=== PATIENT | female | born 1980 | race Caucasian/White ===

== ENCOUNTER 2017-02-24 14:15 | Inpatient (IN) | payer BC, OTHER ==
[~2017-02-24] VITALS: Ht 154.9 cm; Wt 61.2 kg
[2017-02-24] MEDS ORDERED: LORAZEPAM 2 MG/1 ML VIAL IM PRN (14:30)
[2017-02-24] MEDS ORDERED: MAG HYDROX/AL HYDROX/SIMETH 30 ML LIQUID UDC PO PRN (14:30)
[2017-02-24] MEDS ORDERED: LORAZEPAM 1 MG TABLET PO PRN ×2 (14:30)
[2017-02-24] MEDS ORDERED: ONDANSETRON ODT 4 MG TAB.RAPDIS SL PRN (14:30)
[2017-02-24] MEDS ORDERED: LOPERAMIDE HCL 2 MG CAPSULE PO PRN ×2 (14:30)
[2017-02-24] MEDS ORDERED: ONDANSETRON 4 MG/2 ML VIAL IM PRN (14:30)
[2017-02-24] MEDS ORDERED: MIRALAX 17 GM POWD.PACK PO PRN (14:30)
[2017-02-24] MEDS ORDERED: HYDROXYZINE PAMOATE 25 MG CAPSULE PO PRN (14:30)
[2017-02-24] MEDS ORDERED: CLONIDINE HCL 0.1 MG TABLET PO PRN (14:30)
[2017-02-24] MEDS ORDERED: ACETAMINOPHEN 325 MG TABLET PO PRN (14:30)
[2017-02-24] MEDS ORDERED: diphenhydrAMINE 50 MG CAPSULE PO PRN (14:30)
[2017-02-24 15:22] VITALS: BP 139/92
[2017-02-24] MEDS ORDERED: SERT25TA PO (15:26)
[2017-02-24] MEDS ORDERED: MAGN400T26 PO (15:26)
[2017-02-24] MEDS ORDERED: MELA3TAB PO (15:26)
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
[2017-02-24 15:27] LABS: *AMPHETAMINE, URINE NEGATIVE (NEGATIVE); *BARBITURATE, URINE NEGATIVE (NEGATIVE); *CANNABINOID, URINE NEGATIVE (NEGATIVE); *COCCAINE, URINE NEGATIVE (NEGATIVE); *OPIATE, URINE NEGATIVE (NEGATIVE); *PHENCYCLIDINE SCREEN,URINE NEGATIVE (NEGATIVE)
[2017-02-24 15:30] LABS: *URINE HCG, QUAL NEGATIVE (NEGATIVE)
[2017-02-24 15:35] LABS: ALANINE AMINOTRANSFERASE 19 U/L (14-59); ALKALINE PHOSPHATASE 60 U/L (50-136); AMYLASE 46 U/L (25-115); ASPARTATE AMINOTRANSFERASE 16 U/L (15-37); BASOPHILS % (AUTO) 0.4 % (0.0-2.0); BILIRUBIN,TOTAL 1.2 mg/dL (0.2-1.0); CARBON DIOXIDE 27 mmol/L (21-32); CHLORIDE 100 mmol/L (98-107); CREATININE 0.7 mg/dL (0.6-1.3); EOSINOPHILS % (AUTO) 0.2 % (0.0-7.0); GLUCOSE 131 mg/dL (74-106); HEMATOCRIT 41.7 % (37-47); HEMOGLOBIN 13.8 G/DL (12.0-16.0); LYMPHOCYTES # (AUTO) 1.4 K/UL (0.8-4.8); LYMPHOCYTES % (AUTO) 18.8 % (20.5-51.5); MAGNESIUM 1.6 mg/dL (1.8-2.4); MEAN CORPUSCULAR HEMOGLOBIN 32.4 UUG (27.0-31.0); MEAN CORPUSCULAR HGB CONC 33 g/dL (32.0-37.0); MEAN CORPUSCULAR VOLUME 98.2 FL (81.0-99.0); MONOCYTES # (AUTO) 0.5 K/UL (0.1-1.30); MONOCYTES % (AUTO) 6.3 % (0.0-11.0); NEUTROPHILS # (AUTO) 5.4 K/UL (1.8-8.9); NEUTROPHILS % (AUTO) 74.3 % (38.5-71.5); PLATELET COUNT (AUTO) 303 K/UL (150-450); POTASSIUM 3.4 mmol/L (3.5-5.1); RED BLOOD CELL COUNT(AUTO) 4.24 MIL/UL (4.2-5.4); TOTAL PROTEIN, SERUM 7.7 g/dL (6.4-8.2); UREA NITROGEN, BLOOD 10 mg/dL (7-18); WHITE BLOOD COUNT (AUTO) 7.3 K/UL (4.0-11.2)
[2017-02-24 15:55] LABS: ETHANOL < 3 MG/DL (0-0)
[2017-02-24] MEDS ORDERED: THIAMINE HCL 200 MG/2 ML VIAL IM ONE (16:00)
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
--- NOTE | 2017-02-24 18:25 | NUR ---
PRN ATIVAN WAS EFFECTIVE. CIWA 12. TYLENOL PRN EFFECTIVE. SHE STATES H/A IS GONE. WILL PASS SHIFT REPORT TO ONCOMING NIGHT NURSE.
[2017-02-24] MEDS ORDERED: POTASSIUM CHLORIDE 10 MEQ CAPSULE.SA PO ONE (18:30)
[2017-02-24] MEDS ORDERED: MAGNESIUM OXIDE 400 MG TABLET PO ONE (18:30)
[2017-02-24 20:00] VITALS: BP 121/74
--- NOTE | 2017-02-24 20:00 | NUR ---
Start of Shift Pt is a 37 year old female admitted for ETOH dependence, placed on Ativan taper. Pt reported consuming Vodka 750ml/daily and Wine 2 bottles when not drinking Vodka. PMH: Anxiety, depression and Insomnia. Pt reports seasonal allergies, regular diet, fall/seizure precautions and full code. Upon assessment, pt reports feeling anxious with tremors felt upon touch, skin is noted with moderate sweat, clammy upon touch, reports mild chills, respirations even/unlabored, denies SOB/chest pain, denies N/V/D, medications due, Safety measures in place, call light within reach, side rails up x2, bed locked and in low position. Will continue to monitor.
[2017-02-24] MEDS: TRAZODONE 50 MG TABLET PO PRN (20:37)
--- NOTE | 2017-02-24 20:37 | NUR ---
PRN Administration Pt requests aid to help her sleep. Pt refuses scheduled Melatonin. Pt states, "it does not really help". Trazodone 50mg PRN administered. Safety measures in place, Will continue to monitor.
[2017-02-24] MEDS ORDERED: LORAZEPAM 1 MG TABLET PO SCH (21:00)
[2017-02-24] MEDS ORDERED: PATIENT MAY USE OWN MED- MD OK PO SCH (21:00)
[2017-02-24] MEDS ORDERED: SERTRALINE HCL 50 MG TABLET PO ONE (21:00)
[2017-02-24] MEDS ORDERED: LORAZEPAM 1 MG TABLET ONE (21:26)
--- NOTE | 2017-02-24 21:37 | NUR ---
PRN Reassessment Upon reassessment, pt is resting with eyes closed, respirations even/unlabored. Safety measures in place. Will continue to monitor.
[2017-02-25] VITALS: BP 126/85
--- NOTE | 2017-02-25 | NUR ---
Vital Signs/CIWA deferred BP 126/85, pulse 71, resp 16, SpO2 98% room air, temp 98.2, no pain CIWA deferred due to pt sleeping, to assess while pt is awake as ordered. Safety measures in place, will continue to monitor.
[2017-02-25 04:00] VITALS: BP 112/76
--- NOTE | 2017-02-25 04:00 | NUR ---
Vital Signs/CIWA deferred BP 112/76, pulse 70, resp 16, SpO2 98% room air, temp 98.1, no pain CIWA deferred due to pt sleeping, to assess while pt is awake as ordered. Safety measures in place, will continue to monitor.
[2017-02-25 06:06] LABS: HEPATITIS B SURFACE AG Negative (Negative)
--- NOTE | 2017-02-25 07:00 | NUR ---
End of Shift Pt is a 37 year old female admitted for ETOH dependence, placed on Ativan taper. Pt reported consuming Vodka 750ml/daily and Wine 2 bottles when not drinking Vodka. PMH: Anxiety, depression and Insomnia. Pt reports seasonal allergies, regular diet, fall/seizure precautions and full code. During shift, pt reported feeling anxious with tremors felt upon touch, skin is noted with moderate sweat, clammy upon touch, reports mild chills - scheduled taper medications administered, CIWA 7. Trazodone 50mg PRN administered for sleep, effective. Pt slept for 8 hours, intake of 1341 ml PO, voids x2 and stool x0. Safety measures in place, call light within reach, side rails up x2, bed locked and in low positin. Endorsed to day shift nurse.
[2017-02-25 08:08] VITALS: BP 128/75
--- NOTE | 2017-02-25 08:10 | NUR ---
START OF SHIFT: RECEIVED PT A/O X 4. SHE STATES SHE SLEPT WELL DUE TO TRAZODONE PRN LAST NIGHT. SHE REPORTS ANXIETY AND RESTLESSNESS. HER FACE IS FLUSHED. FINE TREMORS NOTED. ATIVAN TAPER IN PROGRESS TO MANAGE S/S OF W/D. CIWA 8. PPD PLANTED TO LFA. ENCOURAGED INCREASED FLUIDS TO ASSIST IN FACILITATING DETOX PROCESS. WILL CONTINUE TO MONITOR AND MANAGE S/S OF W/D.
[2017-02-25] MEDS: MULTIVITAMINS,THERAPEUTIC TABLET PO SCH (08:36)
[2017-02-25] MEDS: FOLIC ACID 1 MG TABLET PO SCH (08:36)
[2017-02-25] MEDS: THIAMINE HCL 100 MG TABLET PO SCH (08:36)
[2017-02-25] MEDS: LORAZEPAM 1 MG TABLET PO SCH ×3 (08:36→21:15)
[2017-02-25] MEDS ORDERED: MAGNESIUM 400 MG PO SCH (09:00)
[2017-02-25] MEDS ORDERED: TUBERCULIN,PURIF.PROT.DERIV. 5 TU/0.1 ML TEST ID ONE (09:00)
[2017-02-25] MEDS: MAGNESIUM PO SCH (09:55)
[2017-02-25 12:00] VITALS: BP 104/73
--- NOTE | 2017-02-25 14:40 | NUR ---
therapist prompted client to come to group today to meet other people and gain some tools for recovery. Client agreed to attend group.
[2017-02-25 16:00] VITALS: BP 120/84
--- NOTE | 2017-02-25 18:52 | NUR ---
END OF SHIFT: PT STAYED IN BED MOST OF DAY WATCHING TV. SHE WAS COMPLIANT WITH INCREASED FLUIDS. ATIVAN TAPER IN PROGRESS TO MANAGE S/S OF W/D. SHE C/O INTERMITTENT ANXIETY AND SWEATS. LAST CIWA 7. SHE STATES ATIVAN IS EFFECTIVE. PPD PLANTED TO LFA TO BE READ ON 02/27. NO PRNS GIVEN. WILL PASS SHIFT REPORT TO ONCOMING NIGHT NURSE.
[2017-02-25 20:00] VITALS: BP 138/97
--- NOTE | 2017-02-25 20:00 | NUR ---
START OF SHIFT NOTE RECEIVED REPORT FROM DAY SHIFT NURSE. PATIENT IS A 37 YEAR OLD FEMALE ADMITTED FOR ETOH DEPENDENCE. PATIENT IS ON ATIVAN TAPER. PATIENT HAS SEASONAL ALLERGIES. PATIENT REPORTS PMH OF ANXIETY, DEPRESSION AND INSOMNIA. NO SEIZURE HISTORY . UPON ADMISSION, PATIENT DRINKS VODKA 750 ML DAILY AND WINE 2 BOTTLES WHEN NOT DRINKING VODKA. SKIN INTACT. PER DAY SHIFT NURSE, PATIENT STAYS IN ROOM MOST OF THE DAY. PATIENT DID NOT REQUIRE ANY PRN MEDICATION. LAST CIWA 7. RECEIVED PATIENT ALERT AND ORIENTED X 4. RESPIRATION EVEN AND UNLABORED. PATIENT C/O ANXIETY, HEADACHE 10/15, NO N/V, NOTED FLUSHED. PER PATIENT SHE FEELS BETTER THAN THIS MORNING. ON FALL/SEIZURE PRECAUTION. SAFETY MEASURES IN PLACE. CALL LIGHT IN REACH. WILL CONTINUE TO MONITOR.
[2017-02-25] MEDS: MELATONIN 3 MG TABLET PO SCH (21:15)
[2017-02-25] MEDS: SERTRALINE HCL 50 MG TABLET PO SCH (21:15)
[2017-02-25] MEDS: TRAZODONE 50 MG TABLET PO PRN (21:15)
[2017-02-25] MEDS: IBUPROFEN 400 MG TABLET PO PRN (21:36)
--- NOTE | 2017-02-25 21:36 | NUR ---
PRN MOTRIN ADMINISTRATION PATIENT C/O HEADACHE 10/15. PRN MOTRIN GIVEN. WILL MONITOR FOR EFFECTIVENESS
--- NOTE | 2017-02-25 22:15 | NUR ---
PRN TRAZADONE ADMINISTRATION PATIENT REQUESTS FOR SLEEP AID. PRN TRAZADONE GIVEN. WILL MONITOR FOR EFFECTIVENESS
--- NOTE | 2017-02-25 22:36 | NUR ---
PRN MOTRIN RE-ASSESSMENT PATIENT STATES MOTRIN IS HELPFUL. PAIN LEVEL IS NOW 2/10. WILL CONTINUE TO MONITOR.
--- NOTE | 2017-02-25 23:30 | NUR ---
PRN TRAZADONE RE-ASSESSMENT PATIENT ASLEEP AT THIS TIME. WILL CONTINUE TO MONITOR
--- NOTE | 2017-02-26 | NUR ---
CIWA DEFERRED PATIENT SLEEPING. CIWA DEFERRED. REFUSED VS. RESPIRATION EVEN AND UNLABORED. SAFETY MEASURES IN PLACE. CALL LIGHT IN REACH. WILL CONTINUE TO MONITOR
--- NOTE | 2017-02-26 | NUR ---
CIWA DEFERRED PATIENT SLEEPING. CIWA DEFERRED. REFUSED VS. RESPIRATION EVEN AND UNLABORED. SAFETY MEASURES IN PLACE. CALL LIGHT IN REACH. WILL CONTINUE TO MONITOR
--- NOTE | 2017-02-26 07:24 | NUR ---
END OF SHIFT NOTE PATIENT IS A 37 YEAR OLD FEMALE ADMITTED FOR ETOH DEPENDENCE. PATIENT IS ON ATIVAN TAPER, TOLERATED WELL AND NO ADVERSE REACTION . PATIENT COMPLIANT WITH MEDICATIONS. CONTINUE TO ENCOURAGE TO PARTICIPATE IN TREATMENT PLAN. PATIENT C/O ANXIETY, HEADACHE 10/15, NO N/V, NOTED FLUSHED. BEGINNING OF SHIFT. PRN MOTRIN WAS GIVEN. AT 2114, PATIENT REQUESTED FOR SLEEP AID, PRN TRAZADONE GIVEN. ON FALL/SEIZURE PRECAUTION. SAFETY MEASURES IN PLACE. CALL LIGHT IN REACH. WILL CONTINUE TO MONITOR. SLEPT 6 HOURS. FLUID INTAKE 1,075 ML. VOIDED X 2 . NO BM. LAST CIWA 5
[2017-02-26 08:00] VITALS: BP 106/70
--- NOTE | 2017-02-26 08:15 | NUR ---
START OF SHIFT NOTE Received report from night nurse, 37 year old female admitted for ETOH dependence. Patient cont on Ativan taper. Patient has PMH of Anxiety, depression and Insomnia. Per endorsement pt received PRN Motrin/Trazodone Effective per nurse, last CIWA was 5, slept for 6 hours. Patient received awake, alert and oriented x4, Educated patient regarding plan of care for the day and medication regimen with good verbal understanding. Safety measures in place. call light with in reach, will continue to monitor.
[2017-02-26] MEDS: FOLIC ACID 1 MG TABLET PO SCH (09:08)
[2017-02-26] MEDS: MULTIVITAMINS,THERAPEUTIC TABLET PO SCH (09:08)
[2017-02-26] MEDS: THIAMINE HCL 100 MG TABLET PO SCH (09:08)
[2017-02-26] MEDS: LORAZEPAM 1 MG TABLET PO SCH ×3 (09:09→16:42)
[2017-02-26] MEDS: MAGNESIUM PO SCH (09:09)
[2017-02-26 12:00] VITALS: BP 138/78
--- NOTE | 2017-02-26 14:37 | NUR ---
Therapist prompted client about group times. Client stated she will attend all groups today.
[2017-02-26 16:00] VITALS: BP 125/95
--- NOTE | 2017-02-26 19:19 | NUR ---
END OF SHIFT NOTE Patient is alert oriented x4. 37 year old female admitted for ETOH dependence. Patient has PMH of Anxiety, depression and Insomnia. Patient cont on 5 days Ativan taper tolerating well. Medications were effective in reducing withdrawal symptoms. Patient did not receive any PRN during shift. Skin intact warm and dry to touch. Last CIWA score was 3. Patient remained compliant with treatment plan and medication regime. All safety measures in place, Call light within reach. Patient endorsed to night nurse in stable condition.
[2017-02-26 20:00] VITALS: BP 126/88
--- NOTE | 2017-02-26 20:00 | NUR ---
START OF SHIFT NOTE RECEIVED REPORT FROM DAY SHIFT NURSE. PATIENT IS A 37 YEAR OLD FEMALE ADMITTED FOR ETOH DEPENDENCE. PATIENT CONTINUE ON ATIVAN TAPER, TOLERATED WELL. PATIENT REPORTS PMH OF ANXIETY, DEPRESSION AND INSOMNIA. SKIN INTACT. PATIENT COMPLIANT WITH MEDICATION AND TREATMENT PLAN. PATIENT DID NOT REQUIRE ANY PRN MEDICATION. LAST CIWA 3. RECEIVED PATIENT ALERT AND ORIENTED X 4. RESPIRATION EVEN AND UNLABORED. PATIENT REPORTS ANXIETY, SWEATING ,NO N/V, FLUSHED, NO PAIN AT THIS TIME. FALL/SEIZURE PRECAUTION . SAFETY MEASURES IN PLACE. CALL LIGHT IN REACH. WILL CONTINUE TO MONITOR.
[2017-02-26] MEDS ORDERED: LORAZEPAM 1 MG TABLET PO SCH (21:00)
[2017-02-26] MEDS: SERTRALINE HCL 50 MG TABLET PO SCH (21:19)
[2017-02-26] MEDS: MELATONIN 3 MG TABLET PO SCH (21:19)
[2017-02-26] MEDS: IBUPROFEN 400 MG TABLET PO PRN (21:24)
[2017-02-26] MEDS: TRAZODONE 50 MG TABLET PO PRN (21:24)
--- NOTE | 2017-02-26 21:24 | NUR ---
PRN MOTRIN AND TRAZADONE ADMINISTRATION PATIENT C/O HEADACHE 07/15 AND REQUESTS FOR SLEEP AID. PRN MOTRIN AND TRAZADONE GIVEN. WILL MONITOR FOR EFFECTIVENESS
--- NOTE | 2017-02-26 22:30 | NUR ---
PRN BENADRYL AND MOTRIN RE-ASSESSMENT PATIENT SLEEPING COMFORTABLY. NO FACIAL GRIMACING. RESPIRATION EVEN AND UNLABORED. SAFETY MEASURES IN PLACE. CALL LIGHT IN REACH. WILL CONTINUE TO MONITOR
[2017-02-27] VITALS: BP 116/78
--- NOTE | 2017-02-27 | NUR ---
CIWA DEFERRED PATIENT SLEEPING. CIWA DEFERRED. VS REFUSED. RESPIRATION EVEN AND UNLABORED. SAFETY MEASURES IN PLACE. CALL LIGHT IN REACH. WILL CONTINUE TO MONITOR
[2017-02-27 04:00] VITALS: BP 94/56
--- NOTE | 2017-02-27 04:00 | NUR ---
CIWA DEFERRED PATIENT SLEEPING. CIWA DEFERRED. VS REFUSED. RESPIRATION EVEN AND UNLABORED. SAFETY MEASURES IN PLACE. CALL LIGHT IN REACH. WILL CONTINUE TO MONITOR
--- NOTE | 2017-02-27 07:22 | NUR ---
END OF SHIFT NOTE PATIENT IS A 37 YEAR OLD FEMALE ADMITTED FOR ETOH DEPENDENCE. PATIENT CONTINUE ON ATIVAN TAPER, TOLERATED WELL AND NO ADVERSE REACTION. PATIENT COMPLIANT WITH MEDICATION AND TREATMENT PLAN. PATIENT DID NOT REQUIRE ANY PRN MEDICATION. PATIENT REMAIN ALERT AND ORIENTED X 4. RESPIRATION EVEN AND UNLABORED. PATIENT REPORTED ANXIETY, SWEATING ,NO N/V, FLUSHED, DID NOT COMPLAIN BEGINNING OF SHIFT. ON FALL/SEIZURE PRECAUTION . SAFETY MEASURES IN PLACE. CALL LIGHT IN REACH. WILL CONTINUE TO MONITOR. SLEPT 9 HOURS. FLUID INTAKE 1,680 ML. VOIDED X 3. NO BM. LAST CIWA 4.
[2017-02-27 08:00] VITALS: BP 104/62
--- NOTE | 2017-02-27 08:00 | NUR ---
START OF SHIFT NOTE Received report from night nurse, 37 year old female admitted for ETOH dependence. Patient cont on Ativan taper. Patient has PMH of Anxiety, depression and Insomnia. Per endorsement pt received PRN Motrin/Trazodone Effective per nurse, last CIWA was 4, slept for 9 hours. Patient received awake, alert and oriented x4, Educated patient regarding plan of care for the day and medication regimen with good verbal understanding. Safety measures in place. call light with in reach, will continue to monitor.
[2017-02-27] MEDS: MAGNESIUM PO SCH (08:47)
[2017-02-27] MEDS: FOLIC ACID 1 MG TABLET PO SCH (08:47)
[2017-02-27] MEDS: THIAMINE HCL 100 MG TABLET PO SCH (08:47)
[2017-02-27] MEDS: LORAZEPAM 1 MG TABLET PO SCH ×3 (08:47→21:09)
[2017-02-27] MEDS: MULTIVITAMINS,THERAPEUTIC TABLET PO SCH (08:47)
[2017-02-27 12:00] VITALS: BP_SYST 138; BP_SYST 142; BP_DIAS 89
--- NOTE | 2017-02-27 13:45 | NUR ---
Activity Group Note: Client participated in "Sequence" activity. Intervention goal was to increase task focus and leisure skills. Client's mood appeared to be euthymic with congruent affect. Client had coherent and goal-directed thought process as evidenced by her ability to understand and complete the task. She was able to initiate conversation with her peers and social work instructor. She stated that she "loves games like these...even though I didn't know how to play when I first got here." Client benefits from leisure activities and social interaction with peers. floorworker distributor will continue to encourage participation.
[2017-02-27 16:00] VITALS: BP 137/86
--- NOTE | 2017-02-27 19:11 | NUR ---
Start of shift note Received report from shift nurse. Pt is a 37 yo female, A+Ox4, presenting to [facility] for ETOH dependence. Pt has NKA, is on full code status, and on Regular diet. Pt is on Fall and Seizure precautions. Pt has HX of Anxiety, depression, and insomnia. Pt is on 5 day Ativan taper, tolerated well. No s/s of distress noted at this time. Respirations even and unlabored. Will continue to monitor.
[2017-02-27 20:09] VITALS: BP 149/98
[2017-02-27] MEDS: TRAZODONE 50 MG TABLET PO PRN (21:09)
--- NOTE | 2017-02-27 21:09 | NUR ---
PRN Trazodone Pt c/o inability to sleep and requested for PRN Benadryl. Medication given and tolerated well. Will reassess within 1 HR. Will continue to monitor. Addendum: 02/28/17 at 0714 by LAMINE ESQUEDA LVN Requested for PRN Trazodone
[2017-02-27] MEDS: SERTRALINE HCL 50 MG TABLET PO SCH (21:10)
[2017-02-27] MEDS: MELATONIN 3 MG TABLET PO SCH (21:10)
--- NOTE | 2017-02-27 22:00 | NUR ---
PRN Trazodone Reassessment Medication effective. Pt is resting well in bed. No s/s of ASE/distress noted at this time. Respirations even and unlabored. Will continue to monitor.
[2017-02-28 00:11] VITALS: BP 132/84
[2017-02-28 04:59] VITALS: BP 127/81
--- NOTE | 2017-02-28 07:00 | NUR ---
End of shift note Pt is a 37 yo female, A+Ox4, presenting to [facility] for ETOH dependence. Pt has NKA, is on full code status, and on Regular diet. Pt is on Fall and Seizure precautions. Pt has HX of Anxiety, depression, and insomnia. Pt is on 5 day Ativan taper, tolerated well. Pt was given PRN Trazodone @2109. Pt slept for a total of 8 HRS. Last CIWA: 3 @0400. No s/s of distress noted at this time. Respirations even and unlabored. Will endorse to day shift nurse.
--- NOTE | 2017-02-28 07:37 | NUR ---
START OF SHIFT NOTE Received report from night nurse, 37 year old female admitted for ETOH dependence. Patient cont on Ativan taper. Patient has PMH of Anxiety, depression and Insomnia. Per endorsement pt received PRN Trazodone Effective per nurse, last CIWA was 3, slept for 8 hours. Patient received awake, alert and oriented x4, Educated patient regarding plan of care for the day and medication regimen with good verbal understanding. Safety measures in place. call light with in reach, will continue to monitor.
[2017-02-28 08:00] VITALS: BP 111/71
[2017-02-28] MEDS: FOLIC ACID 1 MG TABLET PO SCH (08:52)
[2017-02-28] MEDS: THIAMINE HCL 100 MG TABLET PO SCH (08:52)
[2017-02-28] MEDS: MULTIVITAMINS,THERAPEUTIC TABLET PO SCH (08:52)
[2017-02-28] MEDS: MAGNESIUM PO SCH (08:52)
[2017-02-28] MEDS: LORAZEPAM 1 MG TABLET PO SCH ×2 (08:52→20:47)
[2017-02-28 12:00] VITALS: BP 138/88
--- NOTE | 2017-02-28 13:45 | NUR ---
Activity Group Note: Client participated in "painting" activity. Intervention goal was to increase task focus and leisure skills. Client's mood appeared euthymic with congruent affect. Client arrived 20 minutes late to group, but was willing to participate. She had a coherent and goal-directed thought process. She was able to initiate and uphold conversation with her peers. Client was unable to complete task but stated, "I can't wait to show this to my daughter." Client benefits from leisure activities and social interaction with peers. clay house worker will continue to encourage participation in activity group.
[2017-02-28 16:00] VITALS: BP 133/84
--- NOTE | 2017-02-28 19:05 | NUR ---
END OF SHIFT NOTE Patient is alert oriented x4. 37 year old female admitted for ETOH dependence. Patient has PMH of Anxiety, depression and Insomnia. Patient cont on 5 days Ativan taper tolerating well. Medications were effective in reducing withdrawal symptoms. Patient did not receive any PRN during shift. Skin intact warm and dry to touch. Last CIWA score was 2. Patient remained compliant with treatment plan and medication regime. All safety measures in place, Call light within reach. Patient endorsed to night nurse in stable condition.
--- NOTE | 2017-02-28 19:10 | NUR ---
Start of shift note Received report from shift nurse. Pt is a 37 yo female, A+Ox4, presenting to [facility] for ETOH dependence. Pt has NKA, is on full code status, and on Regular diet. Pt is on Fall and Seizure precautions. Pt has HX of Anxiety, depression, and insomnia. Pt is on 5 day Ativan taper, tolerated well. No s/s of distress noted at this time. Respirations even and unlabored. Will continue to monitor.
[2017-02-28 20:08] VITALS: BP 128/77
[2017-02-28] MEDS: SERTRALINE HCL 50 MG TABLET PO SCH (20:47)
[2017-02-28] MEDS: MELATONIN 3 MG TABLET PO SCH (20:47)
[2017-02-28] MEDS: TRAZODONE 50 MG TABLET PO PRN (20:48)
--- NOTE | 2017-02-28 20:48 | NUR ---
PRN Trazodone Pt c/o inability to sleep and requested for PRN Trazodone. Medication given and tolerated well. Will reassess within 1 HR. Will continue to monitor.
[2017-03-01 00:01] VITALS: BP 122/79
[2017-03-01 04:07] VITALS: BP 119/83
--- NOTE | 2017-03-01 07:00 | NUR ---
End of shift note Pt is a 37 yo female, A+Ox4, presenting to [facility] for ETOH dependence. Pt has NKA, is on full code status, and on Regular diet. Pt is on Fall and Seizure precautions. Pt has HX of Anxiety, depression, and insomnia. Pt is on 5 day Ativan taper, tolerated well. Pt was given PRN Trazodone @2047. Pt slept for a total of 7 HRS. Last CIWA: 2 @0400. No s/s of distress noted at this time. Respirations even and unlabored. Will endorse to day shift nurse.
--- NOTE | 2017-03-01 07:28 | NUR ---
Start of shift note; Received report from night nurse. Patient is a 37 year old female admitted on 02/24/17 for ETOH dependence. Patient was placed on Ativan taper, no adverse reactions noted. Patient reported history of anxiety, depression and insomnia. Patient received PRN Trazodone, noted to be effective. Patient last CIWA is 2. All safety measures secured. Will continue to monitor patient.
[2017-03-01 08:00] VITALS: BP 120/71
[2017-03-01] MEDS: MULTIVITAMINS,THERAPEUTIC TABLET PO SCH (08:33)
[2017-03-01] MEDS: MAGNESIUM PO SCH (08:33)
[2017-03-01] MEDS: FOLIC ACID 1 MG TABLET PO SCH (08:33)
[2017-03-01] MEDS: THIAMINE HCL 100 MG TABLET PO SCH (08:33)
[2017-03-01] MEDS ORDERED: LORAZEPAM 1 MG TABLET PO SCH (09:00)
[2017-03-01 12:00] VITALS: BP 130/88
--- NOTE | 2017-03-01 13:45 | NUR ---
Activity Group Note: Client participated in "Sequence" activity. Intervention goal was to increase task focus and leisure skills. Client's mood appeared euthymic with congruent affect. She had a coherent and goal-directed thought process, as evidenced by her ability to understand, complete, and teach the task to her peers. She initiated conversation with her peers and social problems specialist. Client stated, "This is the highlight of my day." Client benefits from leisure activities and social interaction with peers. burlap worker will continue to encourage participation in activity group.
--- NOTE | 2017-03-01 14:23 | NUR ---
Therapist prompted client to attend group to day to be with others rather than being alone in her room. Client agreed to attend group,
[2017-03-01 16:00] VITALS: BP 130/90
--- NOTE | 2017-03-01 18:19 | NUR ---
End of shift note; Patient is AOX4. Patient is a 37 year old female admitted on 02/24/17 for ETOH dependence. Patient was placed on Ativan taper, no adverse reactions noted. Patient reported history of anxiety, depression and insomnia. Patient remained compliant with treatment plan and medication regime. Medications were effective in reducing withdrawal symptoms. Met all needs.
[2017-03-01] MEDS: IBUPROFEN 400 MG TABLET PO PRN (18:50)
--- NOTE | 2017-03-01 18:52 | NUR ---
PRN medication; Patient is complaining of generalized pain rated 6/10, PRN Motrin 400mg PO given for pain. Will endorse to night nurse for re-assessment.
--- NOTE | 2017-03-01 19:14 | NUR ---
Start of shift note Received report from shift nurse. Pt is a 37 yo female, A+Ox4, presenting to [facility] for ETOH dependence. Pt has NKA, is on full code status, and on Regular diet. Pt is on Fall and Seizure precautions. Pt has HX of Anxiety, depression, and insomnia. Pt has completed 5 day Ativan taper, tolerated well, and is due for discharge tomorrow. No s/s of distress noted at this time. Respirations even and unlabored. Will continue to monitor.
[2017-03-01 20:10] VITALS: BP 140/92
[2017-03-01] MEDS: MELATONIN 3 MG TABLET PO SCH (21:38)
[2017-03-01] MEDS: TRAZODONE 50 MG TABLET PO PRN (21:38)
--- NOTE | 2017-03-01 21:38 | NUR ---
PRN Trazodone Pt c/o inability to sleep and requested for PRN Trazodone. Medication given and tolerated well. Will reassess within 1 HR. Will continue to monitor.
[2017-03-01] MEDS: SERTRALINE HCL 50 MG TABLET PO SCH (21:39)
[2017-03-01] MEDS ORDERED: IBUP-1953 PO (22:36)
[2017-03-01] MEDS ORDERED: MELA3TAB PO (22:36)
[2017-03-01] MEDS ORDERED: SERT50TA12 PO (22:36)
[2017-03-01] MEDS ORDERED: HYDR-3895 PO (22:36)
[2017-03-01] MEDS ORDERED: TRAZ-144 PO (22:36)
[2017-03-02 00:40] VITALS: BP 134/85
[2017-03-02 04:14] VITALS: BP 130/82
--- NOTE | 2017-03-02 07:00 | NUR ---
End of shift note Pt is a 37 yo female, A+Ox4, presenting to [facility] for ETOH dependence. Pt has NKA, is on full code status, and on Regular diet. Pt is on Fall and Seizure precautions. Pt has HX of Anxiety, depression, and insomnia. Pt has completed 5 day Ativan taper, tolerated well, and is due for discharge today. Pt was given PRN Trazodone @2138. Pt slept for a total of 8 HRS. Last CIWA: 1 @0400. No s/s of distress noted at this time. Respirations even and unlabored. Will endorse to day shift nurse.
--- NOTE | 2017-03-02 07:01 | NUR ---
Start of Shift Notes: Received patient in her room. Alert and verbally responsive. Able to make her needs known. Respirations even and unlabored. No SOB noted. Skin warm and dry to touch. Abdomen soft and non-distended. BS (+) in all 4 quadrants. No complains of N/V/D or constipation noted. Bladder non-distended. BS (+) in all 4 quadrants. No complains of dysuria. Ambulatory ad jeannie with steady gait. Patient is a 37 year old female admitted for ETOH dependence who was placed on a 5-day Ativan taper and completed. Has past medical hx of anxiety, depression, insomnia. NKDA, Regular diet. On fall and seizure precautions. Prior to admission, patient was using 750cc of Vodka daily and 2 bottles of wine daily. Patient will be discharging today. Educated patient on her discharge process. Patient verbalized good understanding. All needs met and attended. Will continue to monitor.
[2017-03-02 08:00] VITALS: BP 113/79
[2017-03-02] MEDS: THIAMINE HCL 100 MG TABLET PO SCH (08:37)
[2017-03-02] MEDS: FOLIC ACID 1 MG TABLET PO SCH (08:37)
[2017-03-02] MEDS: MULTIVITAMINS,THERAPEUTIC TABLET PO SCH (08:37)
[2017-03-02] MEDS: MAGNESIUM PO SCH (08:38)
--- NOTE | 2017-03-02 10:12 | NUR ---
Discharged: Patient left the unit at this time in stable condition. CIWA 1 due to anxiety. VS stable. Patient's belongings were returned to the patient. Education provided regarding her discharge instructions. Patient verbalized good understanding. All dc paperwork were signed and placed inside duffel bag. All toiletries returned and medication from home were also returned. Picked up by [employer] at this time.
== END 2017-03-02 09:40 | disposition other institution (70) | DRG 895 ==
LOC: SRC 14:15
PROVIDERS: ADMIT Internal Medicine; ATTEND Internal Medicine
PROC: HZ2ZZZZ Detoxification Services for Substance Abuse Treatment (ICD-10-PCS; principal; 2017-02-24)
PROC: HZ41ZZZ Group Counseling for Substance Abuse Treatment, Behavioral (ICD-10-PCS; 2017-02-25)
PROC: HZ31ZZZ Individual Counseling for Substance Abuse Treatment, Behavioral (ICD-10-PCS; 2017-02-26)
DX: F10.230 Alcohol dependence with withdrawal, uncomplicated (principal); K70.10 Alcoholic hepatitis without ascites; E83.42 Hypomagnesemia; F33.1 Major depressive disorder, recurrent, moderate; E80.4 Gilbert syndrome; F15.21 Other stimulant dependence, in remission; F17.210 Nicotine dependence, cigarettes, uncomplicated; F41.9 Anxiety disorder, unspecified; Y90.0 Blood alcohol level of less than 20 mg/100 ml; G47.00 Insomnia, unspecified; Z91.89 Other specified personal risk factors, not elsewhere classified; Z81.1 Family history of alcohol abuse and dependence; Z80.3 Family history of malignant neoplasm of breast; Z79.899 Other long term (current) drug therapy; E87.6 Hypokalemia
CPT/HCPCS: 36415; 70030-TC; 80307; 83735; 84703; 85025; 86580; 86592; 86705; 86803; 87340; 87806; A4663; G0480